=== PATIENT | female | born 1990 ===

== ENCOUNTER 2024-11-06 15:46 | Emergency (ER) | payer OTHER, MEDICAID, SELFPAY ==
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
[2024-11-06] MEDS: Acetaminophen 325 MG TAB 650 MG PO (19:46)
[2024-11-06] MEDS: metroNIDAZOLE 500 MG TAB PO (20:25)
[2024-11-06] MEDS: Doxycycline Hyclate 100 MG CAP PO (20:25)
[2024-11-06] MEDS: Lidocaine 1% Multi-Dose 50 ML VIAL (20:26)
[2024-11-06] MEDS: cefTRIAXone 1 GM VIAL IM (20:26)
[2024-11-06 20:56] LABS: Bilirubin Negative (Negative); Blood Negative (Negative); Clarity Clear (Clear); Glucose Negative (Negative); Ketones Negative (Negative); Leukocyte Esterase Negative (Negative); Nitrite Negative (Negative); Specific Gravity >= 1.030 (1.005-1.025); Urobilinogen 0.2 mg/dL (Up to 0.2); pH 5.5 (5-8)
--- NOTE | 2024-11-07 09:28 | NUR.NOTE ---
chart access to complete SANE paperwork Nursing Note:
[2024-11-07 19:04] LABS: HIV-1/2 Ag & Ab Screen Negative (Negative)
[2024-11-07 19:07] LABS: Hepatitis C Ab w Rflx HCV PCR Negative (Negative)
[2024-11-07 19:43] LABS: HBs Antibody, Quant 52.8 mIU/mL (See Note); Hep B Surface Ab Positive (See Note); Hepatitis B Core Antibody Negative (Negative); Hepatitis B Surface Antigen Negative (Negative)
[2024-11-08 11:17] LABS: Syphilis Serology (RPR) Negative (Negative)
[2024-11-08 18:42] LABS: Chlamydia Result Negative (Negative); GC Result Negative (Negative)
== END 2024-11-06 21:52 | disposition home or self-care (01) ==
LOC: ER 21:54
PROVIDERS: Emergency Provider Nurse Practitioner Family
DX: T74.21XA Adult sexual abuse, confirmed, initial encounter (principal); F17.210 Nicotine dependence, cigarettes, uncomplicated
CPT/HCPCS: 36415; 81025; 86704; 86706; 86803; 87340; 87389; 87491; 87591; 96372; 81003; 86592; 99284; J0696; J2003